=== PATIENT | male | born 1950 | race African-American/Black ===

== ENCOUNTER 2018-05-23 18:58 | Inpatient (IN) | payer MEDICARE, MEDICAID ==
[~2018-05-23] VITALS: Ht 182.9 cm; Wt 101.2 kg
[~2018-05-23 18:58] MED LIST: CHOL400T11; METO-385; MULT-54; SIMV10TA6 PO
[2018-05-23] MEDS ORDERED: SODIUM CHLORIDE 0.9% 1,000 ML IV NR (22:16)
[2018-05-23] MEDS ORDERED: KETOROLAC 30MG/ML VIAL IV ONE (22:45)
[2018-05-23 23:04] LABS: BASOPHILS % 0.7 % (0.0-2.0); HEMATOCRIT. 32.3 % (42.0-52.0); HEMOGLOBIN. 9.8 g/dL (14.0-18.0); LYMPHOCYTES % 10.9 % (20.0-50.0); MEAN CORPUSCULAR VOLUME 62.3 fL (80.0-94.0); MEAN PLATELET VOLUME 9.1 fl (7.4-10.4); MONOCYTES % 9.9 % (2.0-8.0); NEUTROPHILS % 77.5 % (40.0-76.0); PLATELET 426 x1000/uL (130-400); RED BLOOD CELL COUNT 5.18 mill/uL (4.7-6.1); RED CELL DISTRIBUTION WIDTH 22.4 % (11.6-14.6)
[2018-05-23 23:11] LABS: CHLORIDE 107 mEq/L (98-107)
[2018-05-23 23:13] LABS: PLATELET ESTIMATE NORMAL
[2018-05-23 23:31] LABS: CREATINE KINASE 1092 IU/L (39-308)
[2018-05-23] MEDS ORDERED: DEXTROSE 50% WATER 50ML SYRINGE IV NR (23:45)
[2018-05-23] MEDS ORDERED: CALCIUM CHLORIDE 1GM/10ML SYR IV NR (23:45)
[2018-05-23] MEDS ORDERED: SODIUM BICARBONATE 8.4% 1 MEQ/ML 50ML SYR IV NR (23:45)
[2018-05-23] MEDS ORDERED: INSULIN REGULAR (HUMULIN R) 300UNITS/3ML IV NR (23:45)
[2018-05-24 01:24] LABS: C REACTIVE PROTEIN QUANT > 190.0 mg/L (0.0-3.0)
[2018-05-24] MEDS ORDERED: LORAZEPAM 2MG/ML CPJ IV PRN (07:15)
[2018-05-24] MEDS: SODIUM CHLORIDE 0.45% 1,000 ML IV SCH ×2 (07:15→19:30)
[2018-05-24] MEDS ORDERED: MAGNESIUM/ALUMINUM HYDROXIDE/SIMETHICONE 30ML UDC PO PRN (07:15)
[2018-05-24] MEDS ORDERED: DIPHENHYDRAMINE 50MG/ML VIAL IV PRN (07:15)
[2018-05-24] MEDS ORDERED: GUAIFENESIN 200MG/10ML SUGAR FREE UDC PO PRN (07:15)
[2018-05-24] MEDS ORDERED: IPRATROPIUM/ALBUTEROL 0.5-3(2.5)MG/3ML NEB INH PRN (07:15)
[2018-05-24] MEDS ORDERED: NA PHOS,M-B/NA PHOS,DI-BA ENEMA 118ML PR PRN (07:15)
[2018-05-24] MEDS ORDERED: ACETAMINOPHEN 325MG TABLET PO PRN (07:15)
[2018-05-24] MEDS ORDERED: ONDANSETRON HCL 4MG/2ML INJ IV PRN (07:15)
[2018-05-24] MEDS ORDERED: DOCUSATE SODIUM 100MG CAPSULE PO PRN (07:15)
[2018-05-24 07:46] LABS: CHLORIDE 109 mEq/L (98-107)
[2018-05-24] MEDS ORDERED: LEVOFLOXACIN 500MG PREMIX 100 ML IV SCH (08:50)
[2018-05-24] MEDS ORDERED: ENOXAPARIN 40MG/0.4ML SYR SUBCUT SCH (08:50)
[2018-05-24] MEDS ORDERED: ASPIRIN 81MG EC TABLET PO NR (09:30)
[2018-05-24 15:47] VITALS: BP 147/82
[2018-05-24] MEDS ORDERED: METO-539 PO (16:00)
[2018-05-24] MEDS ORDERED: ALLO100T PO (16:00)
[2018-05-24] MEDS ORDERED: TRAM50TA3 PO (16:00)
[2018-05-24 16:50] LABS: T4 FREE 1.16 ng/dL (0.76-1.46)
[2018-05-24 20:00] VITALS: BP 168/81
[2018-05-24] MEDS: HYDROCODONE/ACETAMINOPHEN 5/325MG TABLET PO PRN (21:02)
[2018-05-24 21:25] LABS: BASOPHILS % 0.5 % (0.0-2.0); EOSINOPHILS % 1.7 % (0.0-5.0); HEMATOCRIT. 29.2 % (42.0-52.0); HEMOGLOBIN. 8.8 g/dL (14.0-18.0); LYMPHOCYTES % 19.3 % (20.0-50.0); MEAN CORPUSCULAR HEMOGLOBIN 18.5 pg (28.0-32.0); MEAN CORPUSCULAR VOLUME 61.6 fL (80.0-94.0); MEAN PLATELET VOLUME 8.8 fl (7.4-10.4); MONOCYTES % 10.5 % (2.0-8.0); PLATELET 338 x1000/uL (130-400); RED BLOOD CELL COUNT 4.74 mill/uL (4.7-6.1); RED CELL DISTRIBUTION WIDTH 22.1 % (11.6-14.6)
[2018-05-24 21:38] LABS: PHOSPHORUS 3.6 mg/dL (2.5-4.9)
[2018-05-24 21:42] LABS: CREATINE KINASE 743 IU/L (39-308)
[2018-05-24 21:44] LABS: CREATINE KINASE MB FRACTION 1.9 ng/mL (0.5-3.6)
[2018-05-25] VITALS (8 sets, daily range): BP systolic 124–174; BP diastolic 60–90
[2018-05-25 00:19] LABS: CREATINE KINASE 707 IU/L (39-308)
[2018-05-25 00:20] LABS: CREATINE KINASE MB FRACTION 1.7 ng/mL (0.5-3.6)
[2018-05-25] MEDS: CLONIDINE 0.1MG TABLET PO PRN (03:30)
[2018-05-25] MEDS: HYDROCODONE/ACETAMINOPHEN 5/325MG TABLET PO PRN ×2 (03:30→11:51)
[2018-05-25 06:27] LABS: CHLORIDE 108 mEq/L (98-107)
[2018-05-25 07:30] LABS: BASOPHILS % 0.6 % (0.0-2.0); EOSINOPHILS % 2.7 % (0.0-5.0); HEMATOCRIT. 28.4 % (42.0-52.0); HEMOGLOBIN. 8.5 g/dL (14.0-18.0); LYMPHOCYTES % 23.3 % (20.0-50.0); MEAN CORPUSCULAR HEMOGLOBIN 18.5 pg (28.0-32.0); MEAN PLATELET VOLUME 9.8 fl (7.4-10.4); MONOCYTES % 9.2 % (2.0-8.0); NEUTROPHILS % 64.2 % (40.0-76.0); PLATELET 338 x1000/uL (130-400); RED BLOOD CELL COUNT 4.58 mill/uL (4.7-6.1); RED CELL DISTRIBUTION WIDTH 22.3 % (11.6-14.6)
[2018-05-25 07:53] LABS: LDL CHOLESTEROL 90 mg/dL (5-100)
[2018-05-25 07:55] LABS: CREATINE KINASE 645 IU/L (39-308); HDL CHOLESTEROL 23 mg/dL (40-59)
[2018-05-25 07:57] LABS: CREATINE KINASE MB FRACTION 1.8 ng/mL (0.5-3.6)
[2018-05-25] MEDS: ASPIRIN 81MG EC TABLET PO SCH (10:04)
[2018-05-25] MEDS: HYDROMORPHONE HCL/PF 2MG/ML CPJ IV PRN (10:04)
[2018-05-25] MEDS: SODIUM CHLORIDE 0.45% 1,000 ML IV SCH ×2 (10:05→22:03)
[2018-05-25] MEDS: LEVOFLOXACIN 500MG PREMIX 100 ML IV SCH (11:47)
[2018-05-25] MEDS ORDERED: TRAMADOL 50MG TABLET PO PRN (18:00)
[2018-05-25] MEDS: ALLOPURINOL 100 MG TABLET PO SCH (18:46)
[2018-05-25] MEDS: ENOXAPARIN 100MG/ML SYR SUBCUT SCH (21:56)
[2018-05-25] MEDS: TRAMADOL 50MG TABLET PO PRN (21:57)
[2018-05-26] VITALS: BP 147/80
[2018-05-26 04:00] VITALS: BP 153/76
[2018-05-26 08:00] VITALS: BP 163/79
[2018-05-26] MEDS: CLONIDINE 0.1MG TABLET PO PRN (08:58)
[2018-05-26] MEDS: ASPIRIN 81MG EC TABLET PO SCH (08:58)
[2018-05-26] MEDS: ALLOPURINOL 100 MG TABLET PO SCH (08:58)
[2018-05-26] MEDS: ENOXAPARIN 100MG/ML SYR SUBCUT SCH ×2 (08:59→21:42)
[2018-05-26] MEDS: HYDROMORPHONE HCL/PF 2MG/ML CPJ IV PRN (10:43)
[2018-05-26] MEDS: LEVOFLOXACIN 500MG PREMIX 100 ML IV SCH (10:46)
[2018-05-26 12:00] VITALS: BP 167/85
[2018-05-26] MEDS: SODIUM CHLORIDE 0.45% 1,000 ML IV SCH (13:28)
[2018-05-26 16:00] VITALS: BP 148/79
[2018-05-26] MEDS: HYDROCODONE/ACETAMINOPHEN 5/325MG TABLET PO PRN (18:10)
[2018-05-26 20:00] VITALS: BP 154/73
[2018-05-27] VITALS: BP 180/82
[2018-05-27] MEDS: HYDROMORPHONE HCL/PF 2MG/ML CPJ IV PRN ×3 (00:15→20:19)
[2018-05-27] MEDS: SODIUM CHLORIDE 0.45% 1,000 ML IV SCH (03:15)
[2018-05-27 04:00] VITALS: BP 159/99
[2018-05-27 08:00] VITALS: BP 168/85
[2018-05-27] MEDS: ALLOPURINOL 100 MG TABLET PO SCH (10:00)
[2018-05-27] MEDS: ASPIRIN 81MG EC TABLET PO SCH (10:00)
[2018-05-27] MEDS: ENOXAPARIN 100MG/ML SYR SUBCUT SCH ×2 (10:01→20:26)
[2018-05-27] MEDS: LEVOFLOXACIN 500MG TABLET PO SCH (10:03)
[2018-05-27] MEDS: HYDROCODONE/ACETAMINOPHEN 5/325MG TABLET PO PRN (12:07)
[2018-05-27 13:00] VITALS: BP 168/85
[2018-05-27] MEDS: CLONIDINE 0.1MG TABLET PO PRN (13:28)
[2018-05-27 20:00] VITALS: BP 167/75
[2018-05-28] MEDS: SODIUM CHLORIDE 0.45% 1,000 ML IV SCH (01:21)
[2018-05-28 04:00] VITALS: BP 168/78
[2018-05-28 06:46] LABS: BASOPHILS % 0.4 % (0.0-2.0); EOSINOPHILS % 3.6 % (0.0-5.0); MEAN CORPUSCULAR HEMOGLOBIN 19.1 pg (28.0-32.0); MEAN CORPUSCULAR VOLUME 61.9 fL (80.0-94.0); MEAN PLATELET VOLUME 9.4 fl (7.4-10.4); MONOCYTES % 10.3 % (2.0-8.0); NEUTROPHILS % 60.7 % (40.0-76.0); PLATELET 342 x1000/uL (130-400); RED BLOOD CELL COUNT 4.68 mill/uL (4.7-6.1); RED CELL DISTRIBUTION WIDTH 22.4 % (11.6-14.6)
[2018-05-28 06:59] LABS: CHLORIDE 106 mEq/L (98-107)
[2018-05-28 08:00] VITALS: BP 159/88
[2018-05-28] MEDS: ALLOPURINOL 100 MG TABLET PO SCH (08:49)
[2018-05-28] MEDS: ASPIRIN 81MG EC TABLET PO SCH (08:49)
[2018-05-28] MEDS: ENOXAPARIN 100MG/ML SYR SUBCUT SCH ×2 (08:50→21:45)
[2018-05-28] MEDS: LEVOFLOXACIN 500MG TABLET PO SCH (11:47)
[2018-05-28 12:00] VITALS: BP 165/88
[2018-05-28] MEDS: CLONIDINE 0.1MG TABLET PO PRN (12:24)
[2018-05-28 20:00] VITALS: BP 150/80
[2018-05-28] MEDS: HYDROCODONE/ACETAMINOPHEN 5/325MG TABLET PO PRN (21:46)
[2018-05-29] VITALS: BP 152/88
[2018-05-29 04:00] VITALS: BP 168/96
[2018-05-29 07:10] LABS: HEMOGLOBIN 9.8 g/dL (14.0-18.0); MEAN CORPUSCULAR HEMOGLOBIN 19.2 pg (28.0-32.0); MEAN CORPUSCULAR VOLUME 62.2 fL (80.0-94.0); PLATELET 346 x1000/uL (130-400); RED BLOOD CELL COUNT 5.14 mill/uL (4.7-6.1); RED CELL DISTRIBUTION WIDTH 22.2 % (11.6-14.6)
[2018-05-29 08:00] VITALS: BP 165/91
[2018-05-29] MEDS: ASPIRIN 81MG EC TABLET PO SCH (08:36)
[2018-05-29] MEDS: ENOXAPARIN 100MG/ML SYR SUBCUT SCH ×2 (08:36→21:20)
[2018-05-29] MEDS: TRAMADOL 50MG TABLET PO PRN ×3 (08:36→21:19)
[2018-05-29] MEDS: CLONIDINE 0.1MG TABLET PO PRN (08:37)
[2018-05-29] MEDS: ALLOPURINOL 100 MG TABLET PO SCH (08:37)
[2018-05-29 09:57] LABS: CHLORIDE 104 mEq/L (98-107)
[2018-05-29 10:06] LABS: CREATINE KINASE 430 IU/L (39-308)
[2018-05-29 12:00] VITALS: BP 155/80
[2018-05-29] MEDS: LEVOFLOXACIN 500MG TABLET PO SCH (12:25)
[2018-05-29] MEDS: AMLODIPINE 5MG TABLET PO SCH (14:41)
[2018-05-29 16:00] VITALS: BP 155/86
[2018-05-29 20:00] VITALS: BP 130/79
[2018-05-30] VITALS: BP 146/85
[2018-05-30 04:00] VITALS: BP 142/70
[2018-05-30 08:00] VITALS: BP 146/82
[2018-05-30] MEDS: ALLOPURINOL 100 MG TABLET PO SCH (08:34)
[2018-05-30] MEDS: ASPIRIN 81MG EC TABLET PO SCH (08:34)
[2018-05-30] MEDS: ENOXAPARIN 100MG/ML SYR SUBCUT SCH (08:35)
[2018-05-30] MEDS: AMLODIPINE 5MG TABLET PO SCH (08:35)
[2018-05-30] MEDS: LEVOFLOXACIN 500MG TABLET PO SCH (11:30)
[2018-05-30 12:00] VITALS: BP 140/76
[2018-05-30 13:22] VITALS: BP 146/85
[2018-05-30 14:03] VITALS: BP 143/85
[2018-05-30] MEDS: TRAMADOL 50MG TABLET PO PRN (14:03)
== END 2018-05-30 17:34 | disposition home or self-care (01) | DRG 299 ==
LOC: ER 18:58 → 7WST 23:37 → ENRESERV 05-24 13:03
PROVIDERS: ADMIT Internal Medicine; ATTEND Internal Medicine
DX: I82.431 Acute embolism and thrombosis of right popliteal vein (principal); N17.0 Acute kidney failure with tubular necrosis; M62.82 Rhabdomyolysis; E87.2 Acidosis; E87.5 Hyperkalemia; I10 Essential (primary) hypertension; D72.829 Elevated white blood cell count, unspecified; D64.9 Anemia, unspecified; E78.00 Pure hypercholesterolemia, unspecified; E78.5 Hyperlipidemia, unspecified; I25.10 Atherosclerotic heart disease of native coronary artery without angina pectoris; M10.9 Gout, unspecified
CPT/HCPCS: 36415; 71045; 76770; 80048; 80061; 82550; 82553; 82962; 83036; 83605; 83735; 83880; 84100; 84439; 84443; 84484; 84550; 85027; 85379; 85651; 86140; 93005; 93306; 93970; 96374; 96375; 97116; 97161; 97166; 97530; 97535; 99285; C1893; J1170; J1200; J1650; J1815; J1885; J1956; J3490

== ENCOUNTER 2020-10-14 21:01 | Inpatient (IN) | payer MEDICARE, MEDICAID ==
[~2020-10-14] VITALS: Ht 182.9 cm; Wt 103.4 kg
[~2020-10-14 21:01] MED LIST changes: +ALLO100T PO; -CHOL400T11; -METO-385; +METO-539 PO; -MULT-54; -SIMV10TA6 PO; +SIMV10TA97 PO; +TRAM50TA3 PO
[2020-10-14] MEDS ORDERED: CEFTRIAXONE 1 G PREMIX 50 ML IV ONE (22:30)
[2020-10-14] MEDS ORDERED: FUROSEMIDE 40MG/4ML VIAL IVP ONE (22:30)
[2020-10-14] MEDS ORDERED: VANCOMYCIN 1 G PREMIX 200 ML IV SCH (22:30)
[2020-10-14 22:54] LABS: BASOPHILS % 0.9 % (0.0-2.0); HEMATOCRIT. 24.5 % (42.0-52.0); HEMOGLOBIN. 7.7 g/dL (14.0-18.0); LYMPHOCYTES % 16.6 % (20.0-50.0); MEAN CORPUSCULAR HEMOGLOBIN 20.1 pg (28.0-32.0); MEAN CORPUSCULAR VOLUME 64.1 fL (80.0-94.0); MEAN PLATELET VOLUME 9.4 fl (7.4-10.4); MONOCYTES % 8.6 % (2.0-8.0); NEUTROPHILS % 72.9 % (40.0-76.0); PLATELET 370 x1000/uL (130-400); RED BLOOD CELL COUNT 3.81 mill/uL (4.7-6.1); RED CELL DISTRIBUTION WIDTH 19.4 % (11.6-14.6)
[2020-10-14 22:58] LABS: CHLORIDE 110 mEq/L (98-107)
[2020-10-14 23:02] LABS: INR 1.2; PROTHROMBIN TIME 12.7 sec (9.6-11.0)
[2020-10-14 23:17] LABS: PLATELET ESTIMATE NORMAL
[2020-10-15] MEDS ORDERED: TRAMADOL 50MG TABLET PO SCH (08:15)
[2020-10-15] MEDS ORDERED: ACETAMINOPHEN 650MG/20.3ML UDC GT PRN (08:15)
[2020-10-15] MEDS ORDERED: CLONIDINE 0.1MG TABLET PO PRN (08:15)
[2020-10-15] MEDS ORDERED: DOCUSATE SODIUM 100MG CAPSULE PO PRN (08:15)
[2020-10-15 09:27] LABS: BG BASE EXCESS -1.3 mmol/L (-2.0-2.0); BG CARBOXYHEMOGLOBIN 1.2 % (0.5-1.5); BG HCO3 ACT 23.1 mmol/L (22.0-26.0); BG METHEMOGLOBIN 0.3 % (0.0-1.5); BG OXYGEN SATURATION 95.9 % (92.0-98.5); BG OXYHEMOGLOBIN 94.5 % (94.0-97.0); BG PCO2 37.2 mmHg (35.0-45.0); BG PO2 81.1 mmHg (75.0-100.0); BG SAMPLE SITE RIGHT RADIAL; BG TOTAL HEMOGLOBIN 9.4 g/dL (12.0-18.0); BG VENT MODE ROOM AIR
[2020-10-15 10:00] VITALS: BP 140/53
[2020-10-15 10:30] VITALS: BP 140/50
[2020-10-15 10:48] LABS: BASOPHILS % 0.8 % (0.0-2.0); EOSINOPHILS % 3.5 % (0.0-5.0); HEMATOCRIT. 27.3 % (42.0-52.0); HEMOGLOBIN. 8.4 g/dL (14.0-18.0); LYMPHOCYTES % 19.9 % (20.0-50.0); MEAN CORPUSCULAR HEMOGLOBIN 20.1 pg (28.0-32.0); MEAN CORPUSCULAR VOLUME 65.4 fL (80.0-94.0); MEAN PLATELET VOLUME 9.1 fl (7.4-10.4); MONOCYTES % 7.9 % (2.0-8.0); NEUTROPHILS % 67.9 % (40.0-76.0); PLATELET 398 x1000/uL (130-400); RED BLOOD CELL COUNT 4.17 mill/uL (4.7-6.1); RED CELL DISTRIBUTION WIDTH 19.6 % (11.6-14.6)
[2020-10-15 11:18] LABS: FOLIC ACID (FOLATE) SERUM 9.8 ng/mL (>5.38)
[2020-10-15 12:00] VITALS: BP 117/69
[2020-10-15] MEDS: TRAMADOL 50MG TABLET PO PRN (13:20)
[2020-10-15] MEDS: METOPROLOL TARTRATE 50MG TABLET PO SCH ×2 (13:24→20:38)
[2020-10-15] MEDS: ALLOPURINOL 100 MG TABLET PO SCH (13:24)
[2020-10-15] MEDS ORDERED: NALOXONE HCL 0.4MG/ML VIAL IV PRN (15:45)
[2020-10-15] MEDS: HYDROCODONE/ACETAMINOPHEN 5/325MG TABLET PO PRN (15:59)
[2020-10-15 16:00] VITALS: BP 122/70
[2020-10-15] MEDS ORDERED: POTASSIUM CHLORIDE 20MEQ TABLET SR PO NR (17:15)
[2020-10-15] MEDS: IPRATROPIUM/ALBUTEROL 0.5-3(2.5)MG/3ML NEB HHN SCH ×2 (17:25→21:02)
[2020-10-15] MEDS: FERROUS SULFATE 325MG TABLET PO SCH (19:18)
[2020-10-15 20:00] VITALS: BP 125/64
[2020-10-15] MEDS ORDERED: CEFTRIAXONE 1,000 MG in DEXTROSE 5% WATER 50 ML IV SCH ×2 (20:00→22:00)
[2020-10-15] MEDS: ATORVASTATIN CALCIUM 20MG TABLET PO SCH (20:38)
[2020-10-15] MEDS ORDERED: IOHEXOL-350 100 ML BOTTLE ONE (23:22)
[2020-10-16] VITALS: BP 144/69
[2020-10-16] MEDS: IPRATROPIUM/ALBUTEROL 0.5-3(2.5)MG/3ML NEB HHN SCH ×6 (00:29→20:24)
[2020-10-16 04:00] VITALS: BP 119/67
[2020-10-16 05:40] LABS: BASOPHILS % 0.1 % (0.0-2.0); EOSINOPHILS % 3.2 % (0.0-5.0); HEMATOCRIT. 30.1 % (42.0-52.0); LYMPHOCYTES % 13.5 % (20.0-50.0); MEAN CORPUSCULAR HEMOGLOBIN 19.9 pg (28.0-32.0); MEAN CORPUSCULAR VOLUME 66.5 fL (80.0-94.0); MEAN PLATELET VOLUME 9.4 fl (7.4-10.4); MONOCYTES % 8.6 % (2.0-8.0); NEUTROPHILS % 74.6 % (40.0-76.0); PLATELET 412 x1000/uL (130-400); RED BLOOD CELL COUNT 4.52 mill/uL (4.7-6.1); RED CELL DISTRIBUTION WIDTH 19.9 % (11.6-14.6)
[2020-10-16 08:09] VITALS: BP 129/54
[2020-10-16] MEDS: ALLOPURINOL 100 MG TABLET PO SCH (08:16)
[2020-10-16] MEDS: METOPROLOL TARTRATE 50MG TABLET PO SCH ×2 (08:16→21:00)
[2020-10-16] MEDS: FUROSEMIDE 40MG TABLET PO SCH (08:16)
[2020-10-16] MEDS: HYDROCODONE/ACETAMINOPHEN 5/325MG TABLET PO PRN ×2 (08:16→15:17)
[2020-10-16] MEDS: FERROUS SULFATE 325MG TABLET PO SCH ×3 (08:16→18:13)
[2020-10-16] MEDS: DOCUSATE SODIUM 100MG CAPSULE PO SCH ×2 (08:16→18:13)
[2020-10-16 20:00] VITALS: BP 92/53
[2020-10-16] MEDS: ATORVASTATIN CALCIUM 20MG TABLET PO SCH (21:00)
[2020-10-17] VITALS: BP 133/72
[2020-10-17] MEDS: IPRATROPIUM/ALBUTEROL 0.5-3(2.5)MG/3ML NEB HHN SCH ×6 (03:12→23:16)
[2020-10-17 04:00] VITALS: BP 107/68
[2020-10-17 08:10] VITALS: BP 116/73
[2020-10-17] MEDS: FERROUS SULFATE 325MG TABLET PO SCH ×3 (08:46→18:00)
[2020-10-17] MEDS: DOCUSATE SODIUM 100MG CAPSULE PO SCH ×2 (08:46→18:00)
[2020-10-17] MEDS: METOPROLOL TARTRATE 50MG TABLET PO SCH ×2 (08:46→20:41)
[2020-10-17] MEDS: FUROSEMIDE 40MG TABLET PO SCH (08:46)
[2020-10-17] MEDS: HYDROCODONE/ACETAMINOPHEN 5/325MG TABLET PO PRN ×2 (08:46→18:00)
[2020-10-17] MEDS: ALLOPURINOL 100 MG TABLET PO SCH (08:46)
[2020-10-17 11:58] VITALS: BP 120/64
[2020-10-17 16:16] VITALS: BP 105/53
[2020-10-17 20:00] VITALS: BP 141/69
[2020-10-17] MEDS: ATORVASTATIN CALCIUM 20MG TABLET PO SCH (20:41)
[2020-10-17] MEDS: TRAMADOL 50MG TABLET PO PRN (20:41)
[2020-10-18] VITALS: BP 128/57
[2020-10-18 04:00] VITALS: BP 123/65
[2020-10-18] MEDS: IPRATROPIUM/ALBUTEROL 0.5-3(2.5)MG/3ML NEB HHN SCH ×5 (04:09→21:40)
[2020-10-18] MEDS: ALLOPURINOL 100 MG TABLET PO SCH (08:09)
[2020-10-18] MEDS: FUROSEMIDE 40MG TABLET PO SCH (08:09)
[2020-10-18] MEDS: METOPROLOL TARTRATE 50MG TABLET PO SCH ×2 (08:09→20:38)
[2020-10-18] MEDS: DOCUSATE SODIUM 100MG CAPSULE PO SCH ×2 (08:09→17:45)
[2020-10-18] MEDS: FERROUS SULFATE 325MG TABLET PO SCH ×3 (08:09→17:46)
[2020-10-18] MEDS: HYDROCODONE/ACETAMINOPHEN 5/325MG TABLET PO PRN ×2 (08:10→20:37)
[2020-10-18 08:15] VITALS: BP 139/78
[2020-10-18 12:15] VITALS: BP 142/72
[2020-10-18 13:07] LABS: A/G RATIO 0.5 (0.7-1.7); ALBUMIN 2.9 g/dL (2.9-4.4); ALPHA-1-GLOBULIN 0.4 g/dL (0.0-0.4); BETA GLOBULIN 1.3 g/dL (0.7-1.3); GAMMA GLOBULINS 2.8 g/dL (0.4-1.8); GLOBULIN TOTAL 5.6 g/dL (2.2-3.9); M-SPIKE Not Observed g/dL (Not Observed); TOTAL PROTEIN SERUM 8.5 g/dL (6.0-8.5)
[2020-10-18] MEDS ORDERED: DOCU-138 MT (15:20)
[2020-10-18] MEDS ORDERED: ALBU18HF2 IH (15:20)
[2020-10-18] MEDS ORDERED: FERR325T6 MT (15:20)
[2020-10-18] MEDS ORDERED: FURO-152 MT (15:21)
[2020-10-18 16:15] VITALS: BP 145/73
[2020-10-18 20:00] VITALS: BP 148/79
[2020-10-19] VITALS: BP 123/60
[2020-10-19] MEDS: ATORVASTATIN CALCIUM 20MG TABLET PO SCH (00:26)
[2020-10-19] MEDS: IPRATROPIUM/ALBUTEROL 0.5-3(2.5)MG/3ML NEB HHN SCH ×5 (01:35→15:53)
[2020-10-19 04:00] VITALS: BP 149/56
[2020-10-19 08:00] VITALS: BP 145/82
[2020-10-19] MEDS: FERROUS SULFATE 325MG TABLET PO SCH ×2 (08:53→15:49)
[2020-10-19] MEDS: FUROSEMIDE 40MG TABLET PO SCH (08:53)
[2020-10-19] MEDS: ALLOPURINOL 100 MG TABLET PO SCH (08:55)
[2020-10-19] MEDS: DOCUSATE SODIUM 100MG CAPSULE PO SCH (08:55)
[2020-10-19] MEDS: HYDROCODONE/ACETAMINOPHEN 5/325MG TABLET PO PRN (08:55)
[2020-10-19] MEDS: METOPROLOL TARTRATE 50MG TABLET PO SCH (08:55)
[2020-10-19 12:00] VITALS: BP 126/68
[2020-10-19 16:00] VITALS: BP 130/72
[2020-10-19 16:13] VITALS: BP 130/72
== END 2020-10-19 17:31 | disposition home or self-care (01) | DRG 291 ==
LOC: ER 21:01 → EDBEDREQ 10-15 02:05 → MICUSO 10-15 03:59 → 6WST 10-15 07:47
PROVIDERS: ADMIT Internal Medicine Pulmonary Disease; ATTEND Internal Medicine Pulmonary Disease
DX: I11.0 Hypertensive heart disease with heart failure (principal); N17.0 Acute kidney failure with tubular necrosis; E44.0 Moderate protein-calorie malnutrition; I50.33 Acute on chronic diastolic (congestive) heart failure; E66.9 Obesity, unspecified; D64.9 Anemia, unspecified; E78.00 Pure hypercholesterolemia, unspecified; Z20.822 Contact with and (suspected) exposure to COVID-19; E78.5 Hyperlipidemia, unspecified; F17.210 Nicotine dependence, cigarettes, uncomplicated; E87.8 Other disorders of electrolyte and fluid balance, not elsewhere classified; K60.5 Anorectal fistula; Z68.30 Body mass index [BMI] 30.0-30.9, adult
CPT/HCPCS: 36415; 36600; 71045; 71275; 72192; 73560; 76770; 80048; 80053; 82375; 82607; 82728; 82746; 82805; 83540; 83550; 83605; 83880; 84155; 84165; 84443; 84484; 85025; 87426; 93005; 93306; 94640; 97116; 97162; 97530; 99285; J0696; J1940; J3370; J7060; Q9967

== ENCOUNTER 2022-01-10 16:41 | Emergency (ER) | payer OTHER, MEDICAID ==
[~2022-01-10] VITALS: Ht 182.9 cm; Wt 98.0 kg
[~2022-01-10 16:41] MED LIST changes: +ALBU18HF2 IH; +DOCU-138 MT; +FERR325T6 MT; +FURO-152 MT
[2022-01-10] MEDS ORDERED: SODIUM CHLORIDE 0.9% 1,000 ML IV ONE ×2 (19:00→22:45)
[2022-01-10 19:03] LABS: BASOPHILS % 0.6 % (0.0-2.0); HEMOGLOBIN. 13.9 g/dL (14.0-18.0); LYMPHOCYTES % 13.5 % (20.0-50.0); MEAN CORPUSCULAR HEMOGLOBIN 22.8 pg (28.0-32.0); MEAN CORPUSCULAR VOLUME 71.9 fL (80.0-94.0); MEAN PLATELET VOLUME 9.5 fl (7.4-10.4); MONOCYTES % 8.1 % (2.0-8.0); NEUTROPHILS % 73.8 % (40.0-76.0); PLATELET 257 x1000/uL (130-400); RED BLOOD CELL COUNT 6.12 mill/uL (4.7-6.1); RED CELL DISTRIBUTION WIDTH 21.9 % (11.6-14.6)
[2022-01-10 19:21] LABS: CHLORIDE 107 mEq/L (98-107)
[2022-01-10 19:35] LABS: ETHANOL BLOOD < 10 mg/dL
[2022-01-10 19:37] LABS: CLARITY URINE CLOUDY (CLEAR); COLOR URINE DARK YELLOW (YELLOW); KETONES URINE 1+ (NEGATIVE); LEUKOCYTE ESTERASE URINE 2+ (NEGATIVE); NITRITE URINE POSITIVE (NEGATIVE); OCCULT BLOOD URINE 3+ (NEGATIVE); PH URINE 5.5 (4.5-8.0); PROTEIN URINE 4+ (NEGATIVE)
[2022-01-10] MEDS ORDERED: SODIUM BICARBONATE 8.4% 1 MEQ/ML 50ML SYR IV NR (21:15)
[2022-01-10] MEDS ORDERED: DEXTROSE 50% WATER 50ML SYRINGE IV NR (21:15)
[2022-01-10] MEDS ORDERED: INSULIN REGULAR (HUMULIN R) 300UNITS/3ML VIAL IV NR (21:15)
[2022-01-10] MEDS ORDERED: CEFTRIAXONE 1 G PREMIX 50 ML IV NR (21:15)
[2022-01-10] MEDS ORDERED: CALCIUM CHLORIDE 1GM/10ML SYR IV NR (21:15)
[2022-01-10] MEDS ORDERED: FUROSEMIDE 100MG/10ML VIAL IV NR (21:15)
[2022-01-10 21:38] LABS: CREATINE KINASE 512 IU/L (39-308)
[2022-01-10] MEDS: ALBUTEROL (0.083%) 2.5MG/3ML NEB HHN NR ×2 (21:49→23:00)
[2022-01-11] MEDS ORDERED: ENALAPRIL 1.25MG/ML VIAL 1ML IV NR (04:30)
[2022-01-11] MEDS ORDERED: HYDRALAZINE 20MG/ML VIAL IV ONE (08:00)
[2022-01-11 08:31] VITALS: BP 158/77
== END 2022-01-11 08:47 | disposition short-term general hospital (02) ==
LOC: ER 16:41
DX: I10 Essential (primary) hypertension (principal); E78.00 Pure hypercholesterolemia, unspecified; R51.9 Headache, unspecified; Z20.822 Contact with and (suspected) exposure to COVID-19; Z98.890 Other specified postprocedural states
CPT/HCPCS: 36415; 70450; 80053; 80320; 81003; 82550; 82962; 83605; 83690; 84484; 85025; 87077; 87086; 87186; 87426; 93005; 94644; 96361; 96365; 96375; 99291; C9803; J0360; J0696; J1815; J1940; J3490; J7030; G0480

== ENCOUNTER 2022-02-26 19:04 | Inpatient (IN) | payer OTHER, MEDICAID ==
[~2022-02-26] VITALS: Ht 200.7 cm; Wt 90.7 kg
[2022-02-27 02:15] LABS: BASOPHILS % 0.3 % (0.0-2.0); EOSINOPHILS % 0.8 % (0.0-5.0); HEMATOCRIT. 29.8 % (42.0-52.0); HEMOGLOBIN. 9.1 g/dL (14.0-18.0); MEAN CORPUSCULAR HEMOGLOBIN 21.7 pg (28.0-32.0); MEAN CORPUSCULAR VOLUME 71.5 fL (80.0-94.0); MEAN PLATELET VOLUME 8.2 fl (7.4-10.4); MONOCYTES % 7.9 % (2.0-8.0); PLATELET 332 x1000/uL (130-400); RED BLOOD CELL COUNT 4.17 mill/uL (4.7-6.1); RED CELL DISTRIBUTION WIDTH 20.2 % (11.6-14.6)
[2022-02-27 02:19] LABS: INR 1.2; PROTHROMBIN TIME 12.8 sec (9.6-11.0)
[2022-02-27 02:29] LABS: CHLORIDE 108 mEq/L (98-107)
[2022-02-27] MEDS ORDERED: ACETAMINOPHEN 325MG TABLET PO ONE (02:30)
[2022-02-27] MEDS ORDERED: MORPHINE SULFATE 4 MG/ML CPJ (NOT FOR IM USE) IV ONE (02:30)
[2022-02-27 02:40] LABS: CREATINE KINASE 395 IU/L (39-308)
[2022-02-27] MEDS ORDERED: DEXTROSE 50% WATER 50ML SYRINGE IV ONE (03:00)
[2022-02-27] MEDS ORDERED: INSULIN REGULAR (HUMULIN R) 300UNITS/3ML VIAL IV ONE (03:00)
[2022-02-27] MEDS ORDERED: CALCIUM GLUCONATE 100MG/ML 10ML VIAL IV ONE (03:00)
[2022-02-27] MEDS ORDERED: SODIUM POLYSTYRENE SULFONATE 15 G/60 ML BOT PO ONE (03:00)
[2022-02-27] MEDS ORDERED: SODIUM CHLORIDE 0.9% 1,000 ML IV ONE (03:00)
[2022-02-27 03:47] LABS: PHOSPHORUS 9.7 mg/dL (2.5-4.9)
[2022-02-27 14:18] LABS: CLARITY URINE CLEAR (CLEAR); COLOR URINE YELLOW (YELLOW); KETONES URINE NEGATIVE (NEGATIVE); LEUKOCYTE ESTERASE URINE 2+ (NEGATIVE); NITRITE URINE NEGATIVE (NEGATIVE); OCCULT BLOOD URINE 3+ (NEGATIVE); PH URINE 5.5 (4.5-8.0); PROTEIN URINE 1+ (NEGATIVE); SPECIFIC GRAVITY URINE 1.013 (1.005-1.030)
[2022-02-27] MEDS ORDERED: SODIUM CHLORIDE 0.9% 1,000 ML IV SCH (15:15)
[2022-02-27] MEDS ORDERED: ONDANSETRON HCL 4MG/2ML INJ IV PRN (15:15)
[2022-02-27] MEDS ORDERED: ACETAMINOPHEN 325MG TABLET PO PRN (15:15)
[2022-02-27] MEDS ORDERED: IPRATROPIUM/ALBUTEROL 0.5-3(2.5)MG/3ML NEB HHN PRN (15:15)
[2022-02-27] MEDS ORDERED: PIPERACILLIN/TAZ 3.375G PREMIX 50 ML IV NR (15:15)
[2022-02-27] MEDS ORDERED: NALOXONE HCL 0.4MG/ML VIAL IV PRN (15:30)
[2022-02-27 16:09] LABS: CHLORIDE 114 mEq/L (98-107)
[2022-02-27] MEDS: ENOXAPARIN 30MG/0.3ML SYR SUBCUT SCH (16:25)
[2022-02-27] MEDS ORDERED: INSULIN REGULAR (HUMULIN R) 300UNITS/3ML VIAL IV NR (19:45)
[2022-02-27] MEDS ORDERED: DEXTROSE 50% WATER 50ML SYRINGE IV NR (19:45)
[2022-02-27] MEDS ORDERED: CALCIUM GLUCONATE 1GM PREMIX 50 ML IV NR (19:45)
[2022-02-27 22:30] VITALS: BP 142/72
[2022-02-27 22:39] VITALS: BP 132/50
[2022-02-27 23:00] VITALS: BP 125/49
[2022-02-27] MEDS: PIPERACILLIN/TAZOBACTAM 3.375 G in DEXTROSE 5% WATER 50 ML IV SCH (23:59)
[2022-02-27] MEDS: SODIUM BICARBONATE 100 MEQ in SODIUM CHLORIDE 0.45% 1,000 ML IV SCH (23:59)
[2022-02-28] VITALS (11 sets, daily range): BP systolic 82–172; BP diastolic 48–87
[2022-02-28] MEDS: PIPERACILLIN/TAZOBACTAM 3.375 G in DEXTROSE 5% WATER 50 ML IV SCH ×2 (08:33→22:09)
[2022-02-28] MEDS ORDERED: METHYLPREDNISOLONE SOD SUCC 40 MG/ML VIAL IV NR (09:30)
[2022-02-28 09:36] LABS: BASOPHILS % 0.2 % (0.0-2.0); HEMATOCRIT. 24.9 % (42.0-52.0); HEMOGLOBIN. 7.9 g/dL (14.0-18.0); LYMPHOCYTES % 7.3 % (20.0-50.0); MEAN CORPUSCULAR HEMOGLOBIN 22.2 pg (28.0-32.0); MEAN CORPUSCULAR VOLUME 69.9 fL (80.0-94.0); MEAN PLATELET VOLUME 7.6 fl (7.4-10.4); MONOCYTES % 7.6 % (2.0-8.0); NEUTROPHILS % 83.9 % (40.0-76.0); PLATELET 324 x1000/uL (130-400); RED BLOOD CELL COUNT 3.56 mill/uL (4.7-6.1); RED CELL DISTRIBUTION WIDTH 19.6 % (11.6-14.6)
[2022-02-28 09:44] LABS: CHLORIDE 113 mEq/L (98-107)
[2022-02-28 10:04] LABS: CREATINE KINASE 2354 IU/L (39-308); CREATINE KINASE MB FRACTION 12.9 ng/mL (0.5-3.6)
[2022-02-28] MEDS: HYDROCODONE/ACETAMINOPHEN 5/325MG TABLET PO PRN (10:15)
[2022-02-28] MEDS: MORPHINE SULFATE 2 MG/ML CPJ (NOT FOR IM USE) IV PRN ×2 (12:04→18:03)
[2022-02-28 14:02] LABS: PLATELET ESTIMATE NORMAL
[2022-02-28] MEDS: ENOXAPARIN 30MG/0.3ML SYR SUBCUT SCH (16:09)
[2022-02-28] MEDS: SODIUM BICARBONATE 100 MEQ in SODIUM CHLORIDE 0.45% 1,000 ML IV SCH (16:52)
[2022-03-01] VITALS (26 sets, daily range): BP systolic 105–187; BP diastolic 37–103
[2022-03-01] MEDS: MORPHINE SULFATE 2 MG/ML CPJ (NOT FOR IM USE) IV PRN ×2 (07:32→13:28)
[2022-03-01] MEDS: PIPERACILLIN/TAZOBACTAM 3.375 G in DEXTROSE 5% WATER 50 ML IV SCH ×2 (08:20→23:34)
[2022-03-01] MEDS: HYDROCODONE/ACETAMINOPHEN 5/325MG TABLET PO PRN ×3 (09:12→23:30)
[2022-03-01] MEDS: SODIUM BICARBONATE 100 MEQ in SODIUM CHLORIDE 0.45% 1,000 ML IV SCH (09:13)
[2022-03-01 12:23] LABS: HEMATOCRIT 25.1 % (42.0-52.0); HEMOGLOBIN 7.9 g/dL (14.0-18.0); MEAN CORPUSCULAR HEMOGLOBIN 22.2 pg (28.0-32.0); MEAN CORPUSCULAR VOLUME 69.9 fL (80.0-94.0); PLATELET 297 x1000/uL (130-400); RED BLOOD CELL COUNT 3.59 mill/uL (4.7-6.1); RED CELL DISTRIBUTION WIDTH 19.5 % (11.6-14.6)
[2022-03-01] MEDS: AMLODIPINE 10MG TABLET PO SCH (17:22)
[2022-03-01] MEDS: ENOXAPARIN 30MG/0.3ML SYR SUBCUT SCH (17:22)
[2022-03-01] MEDS ORDERED: CLONIDINE 0.1MG TABLET PO PRN (18:45)
[2022-03-02] VITALS (8 sets, daily range): BP systolic 119–155; BP diastolic 52–92
[2022-03-02] MEDS: HYDROCODONE/ACETAMINOPHEN 5/325MG TABLET PO PRN ×2 (04:02→12:18)
[2022-03-02] MEDS: SODIUM BICARBONATE 100 MEQ in SODIUM CHLORIDE 0.45% 1,000 ML IV SCH ×2 (06:56→20:58)
[2022-03-02 08:11] LABS: BASOPHILS % 0.2 % (0.0-2.0); EOSINOPHILS % 0.8 % (0.0-5.0); HEMATOCRIT. 24.1 % (42.0-52.0); HEMOGLOBIN. 7.6 g/dL (14.0-18.0); LYMPHOCYTES % 10.6 % (20.0-50.0); MEAN CORPUSCULAR HEMOGLOBIN 22.4 pg (28.0-32.0); MEAN PLATELET VOLUME 7.9 fl (7.4-10.4); MONOCYTES % 6.5 % (2.0-8.0); NEUTROPHILS % 81.9 % (40.0-76.0); PLATELET 277 x1000/uL (130-400); RED BLOOD CELL COUNT 3.39 mill/uL (4.7-6.1); RED CELL DISTRIBUTION WIDTH 19.3 % (11.6-14.6)
[2022-03-02] MEDS: AMLODIPINE 10MG TABLET PO SCH (12:20)
[2022-03-02] MEDS: PIPERACILLIN/TAZOBACTAM 3.375 G in DEXTROSE 5% WATER 50 ML IV SCH (12:21)
[2022-03-02] MEDS: ENOXAPARIN 30MG/0.3ML SYR SUBCUT SCH (16:46)
[2022-03-02 16:56] LABS: CREATINE KINASE 939 IU/L (39-308)
[2022-03-02] MEDS ORDERED: MENTHOL/LANOLIN/CALAMINE/ZN OX OINT 71GM TOP PRN (18:00)
[2022-03-02] MEDS ORDERED: SODIUM HYPOCHLORITE 0.125% 473ML SOLUTION TOP PRN (18:00)
[2022-03-03] VITALS: BP_SYST 148; BP_SYST 150; BP_DIAS 100; BP_DIAS 82
[2022-03-03 08:00] VITALS: BP_SYST 132; BP_SYST 153; BP_DIAS 62; BP_DIAS 85
[2022-03-03] MEDS: AMLODIPINE 10MG TABLET PO SCH (09:09)
[2022-03-03] MEDS: HYDROCODONE/ACETAMINOPHEN 5/325MG TABLET PO PRN (09:09)
[2022-03-03] MEDS ORDERED: LEVOFLOXACIN 250MG TABLET PO SCH (11:00)
[2022-03-03 12:00] VITALS: BP_SYST 141; BP_SYST 153; BP_DIAS 51; BP_DIAS 62
[2022-03-03] MEDS: SODIUM BICARBONATE 100 MEQ in SODIUM CHLORIDE 0.45% 1,000 ML IV SCH (14:34)
[2022-03-03 16:00] VITALS: BP 141/51
[2022-03-03 16:42] VITALS: BP 141/51
[2022-03-03 17:05] LABS: BASOPHILS % 0.2 % (0.0-2.0); EOSINOPHILS % 0.9 % (0.0-5.0); HEMATOCRIT. 28.6 % (42.0-52.0); HEMOGLOBIN. 8.8 g/dL (14.0-18.0); LYMPHOCYTES % 11.1 % (20.0-50.0); MEAN CORPUSCULAR HEMOGLOBIN 22.3 pg (28.0-32.0); MEAN CORPUSCULAR VOLUME 72.4 fL (80.0-94.0); MEAN PLATELET VOLUME 8.3 fl (7.4-10.4); MONOCYTES % 8.5 % (2.0-8.0); NEUTROPHILS % 79.3 % (40.0-76.0); PLATELET 239 x1000/uL (130-400); RED BLOOD CELL COUNT 3.95 mill/uL (4.7-6.1); RED CELL DISTRIBUTION WIDTH 19.8 % (11.6-14.6)
[2022-03-03] MEDS: ENOXAPARIN 30MG/0.3ML SYR SUBCUT SCH (17:19)
[2022-03-03 20:00] VITALS: BP 147/65
[2022-03-04] VITALS: BP 100/55
[2022-03-04] MEDS: HYDROCODONE/ACETAMINOPHEN 5/325MG TABLET PO PRN ×3 (00:39→11:18)
[2022-03-04 04:00] VITALS: BP 159/56
[2022-03-04 08:00] VITALS: BP 139/50
[2022-03-04] MEDS: AMLODIPINE 10MG TABLET PO SCH (08:57)
[2022-03-04] MEDS: SODIUM BICARBONATE 100 MEQ in SODIUM CHLORIDE 0.45% 1,000 ML IV SCH ×2 (09:03→20:42)
[2022-03-04 12:00] VITALS: BP 142/68
[2022-03-04 16:00] VITALS: BP 139/60
[2022-03-04] MEDS: ENOXAPARIN 30MG/0.3ML SYR SUBCUT SCH (16:20)
[2022-03-04 20:00] VITALS: BP 147/54
== END 2022-03-05 06:25 | DRG 682 ==
LOC: ER 19:04 → MICUSO 02-27 06:05 → EDBEDREQ 02-27 06:11 → 5EST 02-28 06:37 → 6EST 03-03 01:03
PROVIDERS: ADMIT Internal Medicine; ATTEND Internal Medicine
DX: N17.9 Acute kidney failure, unspecified (principal); G92.8 Other toxic encephalopathy; E46 Unspecified protein-calorie malnutrition; M62.82 Rhabdomyolysis; I13.0 Hypertensive heart and chronic kidney disease with heart failure and stage 1 through stage 4 chronic kidney disease, or unspecified chronic kidney disease; E87.1 Hypo-osmolality and hyponatremia; E87.20 Acidosis, unspecified; N13.9 Obstructive and reflux uropathy, unspecified; E87.5 Hyperkalemia; N18.31 Chronic kidney disease, stage 3a; E79.0 Hyperuricemia without signs of inflammatory arthritis and tophaceous disease; N40.0 Benign prostatic hyperplasia without lower urinary tract symptoms; E78.00 Pure hypercholesterolemia, unspecified; E78.5 Hyperlipidemia, unspecified; D63.1 Anemia in chronic kidney disease; I50.9 Heart failure, unspecified; R62.7 Adult failure to thrive; K59.09 Other constipation; F17.200 Nicotine dependence, unspecified, uncomplicated; Z79.899 Other long term (current) drug therapy; Z68.28 Body mass index [BMI] 28.0-28.9, adult; Z68.22 Body mass index [BMI] 22.0-22.9, adult
CPT/HCPCS: 36415; 71045; 73502; 73551; 74176; 80048; 80053; 81003; 82550; 82553; 82962; 83605; 83735; 83880; 84100; 84145; 84153; 84484; 85025; 85027; 86850; 86900; 87426; 93005; 97162; 97166; 97530; 99291; C1893; C9803; J0610; J1650; J1815; J2270; J2543; J2920; J3490; J7030; J7060; A4315; G0103